=== PATIENT | female | born 1965 | race Caucasian/White ===

== ENCOUNTER 2022-03-31 13:37 | Emergency (ER) | payer OTHER ==
[~2022-03-31] VITALS: Ht 165.1 cm; Wt 78.5 kg
[2022-03-31 13:54] VITALS: BP 101/83
[2022-03-31] MEDS ORDERED: OXYC-128 PO (14:22)
[2022-03-31] MEDS ORDERED: oxyCODONE/APAP (5/325 MG) 1 UDTAB TABLET ONE (14:28)
[2022-03-31] MEDS ORDERED: oxyCODONE/APAP (5/325 MG) 1 UDTAB TABLET PO ONE (14:30)
== END 2022-03-31 14:33 | disposition home or self-care (01) ==
LOC: ER 13:47
DX: M19.90 Unspecified osteoarthritis, unspecified site (principal)

== ENCOUNTER 2022-09-03 14:03 | Emergency (ER) | payer OTHER ==
[~2022-09-03] VITALS: Ht 165.1 cm; Wt 74.4 kg
[~2022-09-03 14:03] MED LIST: OXYC-128 PO
[2022-09-03] MEDS ORDERED: KETOROLAC TROMETHAMINE INJ 30 MG/ML VIAL IM ONE (15:00)
[2022-09-03] MEDS ORDERED: KETOROLAC TROMETHAMINE INJ 30 MG/ML VIAL ONE (15:04)
[2022-09-03] MEDS ORDERED: LIDO700A30 TP (15:20)
[2022-09-03] MEDS ORDERED: HYDR-4303 PO (15:20)
[2022-09-03 15:25] VITALS: BP 123/86
[2022-09-04] MEDS ORDERED: HYDR-3980 PO (18:25)
== END 2022-09-03 15:26 | disposition home or self-care (01) ==
LOC: ER 14:07
DX: M79.10 Myalgia, unspecified site (principal); M19.90 Unspecified osteoarthritis, unspecified site; I10 Essential (primary) hypertension
CPT/HCPCS: 99283; 96372; J1885